=== PATIENT | male | born 1950 | race Caucasian/White ===

== ENCOUNTER → 2017-12-07 | Outpatient (CLI) | payer MEDICARE ==
--- NOTE | 2017-12-16 21:43 | Polysomnography ---
DATE OF STUDY: December 07, 2017 IMPRESSION 1. Moderate obstructive sleep apnea (GAIL) with associated arterial oxygen desaturations. 2. Loud snoring was noted. 3. No limb movement disorder was observed. RECOMMENDATIONS 1. Initiate titration for continuous airway pressure therapy (CPAP). 2. ENT evaluation to consider surgical options to correct sleep disordered breathing. 3. Avoid consumption of alcohol or sedatives before bedtime. 4. Avoid caffeine and exercise within 3 to 4 hours prior to bedtime. 5. Weight reduction to ideal body weight recommended. 6. Advised the patient that excessive daytime sleepiness could pose a danger to patient and others while driving or operating heavy machinery and to use caution until symptoms are treated and improved. 7. The patient to follow up with physicians to discuss results of study. Job#: [id number]
== END ==
LOC: EDSEX 20:00 → SLEEP 21:48
PROVIDERS: ATTEND Otolaryngology
DX: G47.33 Obstructive sleep apnea (adult) (pediatric) (principal)
CPT/HCPCS: 95810

== ENCOUNTER → 2024-03-10 | Day surgery (SDC) | payer MEDICARE ==
[2024-03-08 13:49] LABS: BASOPHILS # (AUTO) 0.1 (0.0-0.1); BASOPHILS % 0.7 % (0.0-1.0); EOSINOPHILS % 0.4 % (0.0-6.0); HEMATOCRIT 45.3 % (38.2-49.6); HEMOGLOBIN 14.3 g/dL (14.0-18.0); LYMPHOCYTES # (AUTO) 2.1 (1.0-3.2); LYMPHOCYTES % 23.4 % (18.0-39.1); MEAN CORPUSCULAR HEMOGLOBIN 31.2 pg (28-32); MEAN CORPUSCULAR HGB CONC 31.6 g/dL (31-35); MEAN CORPUSCULAR VOLUME 98.9 fL (81-99); MONOCYTES # (AUTO) 0.5 (0.2-0.8); MONOCYTES % 5.3 % (4.4-11.3); NEUTROPHILS # (AUTO) 6.4 (2.1-6.9); NEUTROPHILS % 70.1 % (38.7-80.0); PLATELET COUNT 212 x10e3/uL (140-360); RED BLOOD COUNT 4.58 x10e6/uL (4.3-5.7); RED CELL DISTRIBUTION WIDTH 13.3 % (11.7-14.4); WHITE BLOOD COUNT 9.07 x10e3/uL (4.8-10.8)
[~2024-03-10] MED LIST: ATORVASTATIN CA10 MG PO; LISINOPRIL-HCT1 EAC1 PO; METFORMIN HCL500 MG PO; METOPROLOL SUCC25 MG PO; NEURONTIN100 MG PO; PROPOFOL IV EMULSION 10 MG/ML 20 ML VIAL ONE; VITAMIN B121000 MCG PO; VITAMIN C1000 MG PO; VITAMIN D310 MCG PO; ZINC30 M1 PO
[2024-03-10] MEDS: LACTATED RINGER'S 1,000 ML ONE (05:51)
[2024-03-10 07:46] VITALS: TEMP 98
[2024-03-10 08:00] VITALS: BP 119/63; PULSE 55; RESP 15; O2SAT 97
== END | disposition home or self-care (01) ==
LOC: OR 05:20
PROVIDERS: ATTEND Internal Medicine Gastroenterology
DX: Z09 Encounter for follow-up examination after completed treatment for conditions other than malignant neoplasm (principal); D12.0 Benign neoplasm of cecum; D12.2 Benign neoplasm of ascending colon; K57.30 Diverticulosis of large intestine without perforation or abscess without bleeding; K64.8 Other hemorrhoids; Z71.3 Dietary counseling and surveillance; G47.33 Obstructive sleep apnea (adult) (pediatric); E11.9 Type 2 diabetes mellitus without complications; I10 Essential (primary) hypertension; E78.5 Hyperlipidemia, unspecified; Z01.810 Encounter for preprocedural cardiovascular examination; Z01.812 Encounter for preprocedural laboratory examination; Z79.84 Long term (current) use of oral hypoglycemic drugs; Z79.899 Other long term (current) drug therapy; Z68.38 Body mass index [BMI] 38.0-38.9, adult; Z85.828 Personal history of other malignant neoplasm of skin; Z87.891 Personal history of nicotine dependence
CPT/HCPCS: 36415; 45385; 85025; 88305; 93005; J2704; J7121; 45378